=== PATIENT | male | born 1995 | race Caucasian/White ===

== ENCOUNTER 2017-11-05 21:51 | Emergency (ER) | payer MEDICAID ==
[~2017-11-05] VITALS: Ht 180.3 cm; Wt 66.7 kg
[2017-11-05 21:53] VITALS: BP 127/79
== END 2017-11-05 22:49 | disposition home or self-care (01) ==
LOC: ED 22:43
DX: J06.9 Acute upper respiratory infection, unspecified (principal); J02.0 Streptococcal pharyngitis
CPT/HCPCS: 99283

== ENCOUNTER 2017-11-11 01:01 | Emergency (ER) | payer MEDICAID ==
[~2017-11-11] VITALS: Ht 180.3 cm; Wt 67.8 kg
[2017-11-11 01:02] VITALS: BP 139/84
[2017-11-11] MEDS ORDERED: ALBUTEROL/IPRATROPIUM 2.5MG/0.5MG, 3 ML NPPB ONE (02:00)
== END 2017-11-11 02:37 | disposition home or self-care (01) ==
LOC: ED 01:29
DX: J20.9 Acute bronchitis, unspecified (principal); F17.200 Nicotine dependence, unspecified, uncomplicated
CPT/HCPCS: 71020; 94640; 99284; J7620

== ENCOUNTER 2017-12-03 22:12 | Emergency (ER) | payer MEDICAID ==
[~2017-12-03] VITALS: Ht 180.3 cm; Wt 66.4 kg
[2017-12-03 22:14] VITALS: BP 126/66
== END 2017-12-03 23:17 | disposition home or self-care (01) ==
LOC: ED 23:14
DX: R55 Syncope and collapse (principal); F41.1 Generalized anxiety disorder; B34.9 Viral infection, unspecified
CPT/HCPCS: 93005; 99283

== ENCOUNTER 2018-02-10 21:19 | Emergency (ER) | payer MEDICAID ==
[~2018-02-10] VITALS: Ht 180.3 cm; Wt 65.1 kg
[2018-02-10 21:20] VITALS: BP 118/88
== END 2018-02-10 23:02 | disposition home or self-care (01) ==
LOC: ED 21:47
DX: S39.011A Strain of muscle, fascia and tendon of abdomen, initial encounter (principal); F43.10 Post-traumatic stress disorder, unspecified
CPT/HCPCS: 99284